=== PATIENT | female | born 1980 | race Asian ===

== ENCOUNTER 2017-01-10 11:30 | Inpatient (IN) | payer BC ==
[~2017-01-10 11:30] MED LIST: CITRIC ACID/SODIUM CITRATE 30 ML UNIT-DOSE CUP PO ONE; ELECTROLYTE-148 SOLN 1,000 ML IV SCH
[2017-01-10 12:00] VITALS: BMI 19.1
[2017-01-10] MEDS ORDERED: morphine SULFATE/Preservative Free 0.5 MG/ML (1cc Syringe) SPIN ONE (13:10)
[2017-01-10] MEDS ORDERED: ONDANSETRON 4 MG/2 ML VIAL IVPB PRN (13:14)
[2017-01-10] MEDS: OXYTOCIN 20 UNITS in 0.9% NS 1,000 ML IV SCH (13:31)
[2017-01-10] MEDS ORDERED: IBUPROFEN 600 MG TABLET (FP) PO PRN (14:01)
[2017-01-10] MEDS ORDERED: METHYLERGONOVINE MALEATE 0.2 MG/1 ML AMP IM PRN (14:01)
--- NOTE | 2017-01-10 14:09 | HP ---
Past Medical History - Primary Care Physician PCP:: Susana Weston - Admission Chief Complaint: Previous Section History of Present Illness: 36 yo G P EDc EGA 39 weeks with AMA, gestational DM previous CS for repeat CS at 39 week History Source: Patient - Past Medical History ...: 2 ...Para: 1 ...Term: 1 ...: 0 ...Spon : 0 ...Induced : 0 ...Multiple Gestation: 0 ...LMP: 04/16/16 ... Weeks Gestation by Dates: 39.3 ...EDC by Dates: 01/21/17 ...EDC by Sono: 01/17/17 Additional Medical History: gestational DM - Past Surgical History Past Surgical History: Yes: Hx Myomectomy: No Hx Transabdominal Cerclage: No - Smoking History Smoking history: Never smoked Have you smoked in the past 12 months: No - Alcohol/Substance Use Hx Alcohol Use: No History of Substance Use: reports: None - Social History Usual Living Arrangement: Yes: With Spouse History of Recent Travel: No Home Medications - Allergies Allergies/Adverse Reactions: Allergies Allergy/AdvReac Type Severity Reaction Status Date / Time sulfamethoxazole Allergy Mild Swelling Verified 11/26/16 13:48 [From Bactrim] trimethoprim [From Bactrim] Allergy Mild Swelling Verified 11/26/16 13:48 - Home Medications Home Medications: Ambulatory Orders Vit/Iron Fumarate/FA [ Tablet] 1 tab PO DAILY 09/08/13 Colace - 1 tab PO DAILY 11/26/16 Zantac 1 tab PO DAILY 11/26/16 Oxycodone HCl/Acetaminophen [Percocet 5-325 mg Tablet -] 1 tab PO Q4H #20 tablet MDD 6 01/10/17 Review of Systems - Review of Systems Constitutional: reports: No Symptoms Eyes: reports: No Symptoms HENT: reports: No Symptoms Neck: reports: No Symptoms Cardiovascular: reports: No Symptoms Respiratory: reports: No Symptoms Gastrointestinal: reports: No Symptoms Genitourinary: reports: No Symptoms Breasts: reports: No Symptoms Reported Musculoskeletal: reports: No Symptoms Integumentary: reports: No Symptoms Neurological: reports: No Symptoms Endocrine: reports: No Symptoms Hematology/Lymphatic: reports: No Symptoms Psychiatric: reports: No Symptoms Physical Exam - Maternity Constitutional: Yes: Well Nourished, No Distress HENT: Yes: WNL Neck: Yes: WNL Cardiovascular: Yes: WNL, Regular Rate and Rhythm Lungs: Clear to auscultation Breast(s): Yes: WNL - Abdominal Exam/OB Fundal Height: 40 Number of Fetuses: Single Presentation: Vertex Contractions: No Monitor Mode: External Heart Rate Location: [facility] Category: I Accelerations: Non-Uniform - Vaginal Exam/OB Speculum Exam: No Amniotic Membrane Status: Intact Presentation: Vertex/Position Station: -1 - Physical Exam Musculoskeletal: Yes: WNL Extremities: Yes: WNL Edema: No Integumentary: Yes: WNL Hemorrhage Risk Assessment - Risk Factors Medium Risk Factors: Yes: Prior , uterine surgery,or multiple laparotomies Risk Score: 1 Risk Level: Medium Risk Problem List - Problems (1) Previous delivery affecting , antepartum Code(s): O34.219 - MATERNAL CARE FOR UNSP TYPE SCAR FROM PREVIOUS DEL (2) Elderly multigravida in third trimester Code(s): O09.523 - SUPERVISION OF ELDERLY MULTIGRAVIDA, THIRD TRIMESTER (3) Gestational diabetes Code(s): O24.419 - GESTATIONAL DIABETES MELLITUS IN , UNSP CONTROL Assessment/Plan Previous CS AMA Cat 1 Gestational DM Plan Repeat CS
--- NOTE | 2017-01-10 14:14 | OP ---
Operative Note - Note: Operative Date: 01/10/17 Pre-Operative Diagnosis: Previous Section. AMA. Gestation DM Operation: Repeat Section Findings: Live male infant in OT position Post-Operative Diagnosis: Same as Pre-op Surgeon: Susana Weston Pulmonology Technician: Kulwant Mandel Anesthesia: Spinal Estimated Blood Loss (mls): 600 Operative Report Dictated: Yes
[2017-01-10 14:34] LABS: ARTERIAL BLD GAS O2 SATURATION 36.8 % (90-98.9); ARTERIAL BLOOD GAS BASE EXCESS -1.6 meq/l (-2-2); ARTERIAL BLOOD GAS HCO3 25.7 meq/L (22-26)
[2017-01-10] MEDS: IBUPROFEN 800 MG/8 ML IJ IVPB PRN ×2 (14:39→20:40)
[2017-01-10 14:42] LABS: LPM/O2% 21; PT. ON O2? ROOM AIR
[2017-01-10 14:43] LABS: ARTERIAL BLOOD GAS pH 7.28 (7.35-7.45); VENOUS PH 7.33 (7.32-7.42)
[2017-01-10 14:44] LABS: VENOUS BLOOD GAS HCO3 24.4 meq/L (19-25)
--- NOTE | 2017-01-10 15:11 | OP ---
DATE OF OPERATION: 01/10/2017 PREOPERATIVE DIAGNOSIS: Previous section and diabetes. OPERATION: Repeat section. POSTOPERATIVE DIAGNOSIS: Previous section and diabetes, and live male . SURGEON: Sadaf Wesotn MD STUDIO ENGINEER: MUNIRA Marcos. ANESTHESIA: Spinal. ANESTHESIOLOGIST: Viral Jamison MD PROCEDURE: Patient was taken to the operating room, placed in supine position, prepped and draped in the usual sterile fashion. A time-out was performed in accordance with hospital regulations. Scalpel was then used to make a Pfannenstiel skin incision through the patients previous scar. Cautery was then used to go through the layers of the abdominal wall to the level of the fascia. Fascia was cut in the midline, and cautery was then used to open the fascia in smiling fashion. Grover was then used to bluntly and sharply dissect the rectus muscle off the fascia. The muscle was split in the midline. Peritoneal cavity was entered and carried up and downwards. Bladder retractor was then placed. Vesicouterine reflection was taken down. Scalpel was then used to make a low transverse uterine incision. Incision was carried up with use of bandage scissors. A live male was delivered in OT position. Nose and mouth suction was performed. Shoulders were delivered without difficulty. The cord was clamped and cut. Live male infant was handed to juvenile corrections officer. Placenta was manually extracted from the uterus. The uterus was exteriorized and cleaned with clean lap pads. Uterine incision was then closed using 0 Biosyn suture, first layer with continuous interlocking and second layer imbricating the first layer. Hemostasis was achieved. Uterus was interiorized. Abdominal cavity cleaned with clean lap pads. Peritoneum closed using 0 Biosyn suture. Fascia was then closed using 0 Vicryl suture in 2 parts. Skin was then closed using 3-0 Vicryl in subcuticular fashion. Wounds washed and dressed. Patient tolerated the procedure well, was taken to the recovery room in stable condition. SADAF WESTON M.D. [id number] MTDD
[2017-01-10] MEDS: ELECTROLYTE-148 SOLN 1,000 ML IV SCH (15:59)
--- NOTE | 2017-01-10 18:30 | SURG ---
Surgery Cleaning Manager Note Cleaning Manager: Kulwant Mandel PA-C Date of Service: 01/10/17 Diagnosis: Previous Section. AMA. Gestation DM Procedure: Repeat Section I was present for the entirety of the operative procedure. For further detail, please refer to operative report. Visit type - Case Type Case Type: Scheduled Admission - New patient This patient is new to me today: Yes Date on this admission: 01/10/17
[2017-01-11] MEDS: IBUPROFEN 600 MG TABLET (FP) PO PRN ×2 (06:26→11:59)
[2017-01-11] MEDS: ACETAMINOPHEN 325 MG TABLET (FP) PO PRN (06:26)
--- NOTE | 2017-01-11 07:45 | PN ---
Post Progress Note - Subjective Subjective: 36 yo Para 2, status post repeat , seen and evaluated. She's lying in bed, no complaints. Post Day: 1 Type of Delivery: Repeat C/S Vital Signs: Vital Signs Temperature 97.7 F 01/11/17 06:00 Pulse Rate 86 01/11/17 06:00 Respiratory Rate 18 01/11/17 07:00 Blood Pressure 124/59 01/11/17 06:00 O2 Sat by Pulse Oximetry (%) 99 01/10/17 14:58 Breast Exam: Yes: Soft Uterus: Yes: Fundus Firm Incision: Yes: Dressing dry and intact Abdomen/GI: Yes: Abdomen soft Lochia: Yes: Rubra Lochia, amount: Small Extremities: Yes: Calves non-tender Perineum: Yes: Intact Assessment/Plan Status post repeat Ambulation Analgesia as needed Continue routine post op care
[2017-01-11 08:55] LABS: BASOPHIL 0.3 % (0-2.0); EOSINOPHIL 1.2 % (0-4.5); MCH 29.7 pg (25.7-33.7); MCHC 32.3 g/dl (32.0-36.0); MEAN PLT VOLUME 8.5 fl (7.5-11.1); NEUTROPHILS 81.6 % (42.8-82.8); PLATELET COUNT 167 K/MM3 (134-434); RDW 13.9 % (11.6-15.6); WHITE BLOOD COUNT 11.2 K/mm3 (4.0-10.0)
[2017-01-11] MEDS: PRENATAL VITAMINS W/ FOLIC ACID TABLET (FP) PO SCH (10:01)
--- NOTE | 2017-01-11 10:11 | PN ---
Progress Note (short form) - Note Progress Note: POD #1 - s/p repeat under spinal anesthesia with morphine. Pt. doing well, sitting up comfortably in chair. No complaints. Good pain control. No apparent anesthetic complications noted. Continue current care.
[2017-01-11] MEDS: oxyCODONE HCL 5 MG TABLET PO PRN ×2 (11:58→19:07)
[2017-01-11] MEDS: SIMETHICONE 80 MG TAB.CHEW (FP) PO PRN ×2 (12:00→19:07)
[2017-01-11] MEDS ORDERED: BISACODYL 10 MG SUPP.RECT RC PRN (14:01)
[2017-01-12] MEDS: SIMETHICONE 80 MG TAB.CHEW (FP) PO PRN ×4 (03:12→22:00)
[2017-01-12] MEDS: IBUPROFEN 600 MG TABLET (FP) PO PRN ×4 (03:12→22:00)
--- NOTE | 2017-01-12 06:21 | PN ---
Post Progress Note - Subjective Subjective: 36 yo status post repeat , seen and evaluated. Doing well. No complaints. Post Day: 2 Type of Delivery: Repeat C/S Vital Signs: Vital Signs Temperature 98.4 F 01/11/17 20:41 Pulse Rate 92 H 01/11/17 20:41 Respiratory Rate 18 01/11/17 20:41 Blood Pressure 105/64 01/11/17 20:41 O2 Sat by Pulse Oximetry (%) 99 01/10/17 14:58 Breast Exam: Yes: Soft Uterus: Yes: Fundus Firm Incision: Yes: Other (Sterile strips in place) Abdomen/GI: Yes: Tolerating PO Lochia: Yes: Rubra Lochia, amount: Small Extremities: Yes: Calves non-tender Perineum: Yes: Intact Activity: Ambulating - Labs Labs: CBC WBC 11.2 K/mm3 (4.0-10.0) H D 01/11/17 08:30 RBC 4.38 M/mm3 (3.60-5.2) 01/11/17 08:30 Hgb 13.0 GM/dL (10.7-15.3) 01/11/17 08:30 Hct 40.3 % (32.4-45.2) 01/11/17 08:30 MCV 92.0 fl (80-96) 01/11/17 08:30 MCH 29.7 pg (25.7-33.7) 01/11/17 08:30 MCHC 32.3 g/dl (32.0-36.0) 01/11/17 08:30 RDW 13.9 % (11.6-15.6) 01/11/17 08:30 Plt Count 167 K/MM3 (134-434) 01/11/17 08:30 MPV 8.5 fl (7.5-11.1) 01/11/17 08:30 Neutrophils % 81.6 % (42.8-82.8) 01/11/17 08:30 Lymphocytes % 10.5 % (8-40) D 01/11/17 08:30 Monocytes % 6.4 % (3.8-10.2) 01/11/17 08:30 Eosinophils % 1.2 % (0-4.5) 01/11/17 08:30 Basophils % 0.3 % (0-2.0) 01/11/17 08:30 Assessment/Plan Status post repeat Ambulation Analgesia as needed Continue routine post op care
[2017-01-12] MEDS: oxyCODONE HCL 5 MG TABLET PO PRN ×2 (09:22→17:47)
[2017-01-12] MEDS: PRENATAL VITAMINS W/ FOLIC ACID TABLET (FP) PO SCH (09:22)
[2017-01-12] MEDS ORDERED: DIPHTH,PERTUSS(ACELL),TET 0.5 ML DISP.SYRIN IM ONE (10:00)
[2017-01-12] MEDS: ELECTROLYTE-148 SOLN 1,000 ML IV SCH ×2 (19:30→19:31)
[2017-01-12] MEDS: OXYTOCIN 20 UNITS in 0.9% NS 1,000 ML IV SCH (19:31)
[2017-01-13] MEDS: oxyCODONE HCL 5 MG TABLET PO PRN ×2 (06:23→12:13)
[2017-01-13] MEDS: SIMETHICONE 80 MG TAB.CHEW (FP) PO PRN ×2 (06:23→12:13)
[2017-01-13] MEDS: ACETAMINOPHEN 325 MG TABLET (FP) PO PRN (06:23)
[2017-01-13 07:36] VITALS: BP 121/71; PULSE 79; TEMP 98
[2017-01-13 07:55] LABS: MCH 30.1 pg (25.7-33.7); MCHC 32.9 g/dl (32.0-36.0); MEAN CELL VOLUME 91.6 fl (80-96); MEAN PLT VOLUME 7.8 fl (7.5-11.1); NEUTROPHILS 74.9 % (42.8-82.8); PLATELET COUNT 217 K/MM3 (134-434); RDW 13.5 % (11.6-15.6); WHITE BLOOD COUNT 7.9 K/mm3 (4.0-10.0)
[2017-01-13] MEDS: PRENATAL VITAMINS W/ FOLIC ACID TABLET (FP) PO SCH (09:08)
--- NOTE | 2017-01-13 09:32 | DS ---
Physical Exam-PATTERN CHANGER AND REPAIRER Vital Signs: Vital Signs Temperature 98 F 01/13/17 07:35 Pulse Rate 79 01/13/17 07:35 Respiratory Rate 18 01/13/17 07:35 Blood Pressure 121/71 01/13/17 07:35 O2 Sat by Pulse Oximetry (%) 99 01/10/17 14:58 Constitutional: Yes: Well Nourished Eyes: Yes: Conjunctiva Clear HENT: Yes: Atraumatic Neck: Yes: Supple Cardiovascular: Yes: Regular Rate and Rhythm Respiratory: Yes: Regular Gastrointestinal: Yes: Normal Bowel Sounds External Genitalia: Yes: Normal Uterus: Yes: Normal Wound/Incision: Yes: Sutures Intact Neurological: Yes: Alert, Oriented ...Motor Strength: WNL Psychiatric: Yes: Alert, Oriented Labs: CBC, BMP 01/13/17 07:15 Delivery - Delivery Type of Anesthesia: Spinal Episiotomy/Laceration: None EBL (cc): 500 Delivery, Single - Stages of Labor Date of Delivery: 01/10/17 Time of Delivery: 13:30 Time Placenta Delivered: 13:31 - Condition of Supervisor Vegetable Farming/Apprentice Funeral Director Present: Yes Name: Danny Menjivar Infant Gender: Male Weight: 9 lb 2 oz Position: OT Total Hours ROM (Hrs/Mins): 0/1 - 1 Minute Total Score: 9 5 Minutes Total Score: 9 - [place] Feeding Plan Initial Plan: Elected not to breastfeed exclusively throughout hospitalization Discharge Summary Reason For Visit: C SECTION Current Active Problems Elderly multigravida in third trimester (Acute) Gestational diabetes (Acute) Previous delivery affecting , antepartum (Acute) Procedures: Principal: Repeat Low Transverse Hospital Course: Routine Post op care - Instructions Diet, Activity, Other Instructions: Return to MD office in 1-2weeks, call office for an appointment. Referrals: Susana Weston MD [Staff Physician] - - Home Medications Comprehensive Discharge Medication List: Ambulatory Orders Vit/Iron Fumarate/FA [ Tablet] 1 tab PO DAILY 09/08/13 Colace - 1 tab PO DAILY 11/26/16 Zantac 1 tab PO DAILY 11/26/16 Oxycodone HCl/Acetaminophen [Percocet 5-325 mg Tablet -] 1 tab PO Q4H #20 tablet MDD 6 01/10/17
[2017-01-13] MEDS: IBUPROFEN 600 MG TABLET (FP) PO PRN (12:14)
--- NOTE | 2017-01-15 15:59 | PATH ---
Surgical Pathology Report Patient Name: AP FERMIN Med. Rec. #: [id number] /Age/Gender: 1980 (Age: 36) / F Account: [id number] Location: [facility] OBS/BUSINESS EMPLOYMENT SPECIALIST Taken: 01/10/2017 Received: 01/13/2017 Reported: 01/15/2017 Physicians: Susana Weston M.D. Specimen(s) Received PLACENTA Clinical History , x1 Final Diagnosis PLACENTA, SECTION: MATURE THIRD TRIMESTER PLACENTA, TRIVASCULAR UMBILICAL CORD AND UNREMARKABLE MEMBRANES. Electronically Signed Stephanie Moctezuma M.D. Gross Description The specimen is received fresh labeled placenta and is a 628 gram, 22.0 x 19.0 x 2.2 cm. placenta with attached membranes and umbilical cord. The attached membranes are solorzano, translucent with focal opacities and insert marginally. The umbilical cord measures 11 cm in length and averages 1.3 cm in diameter. The cord inserts eccentrically, 2 cm to the nearest margin. No true knots or strictures are identified. Cut surface of the umbilical cord reveals 3 vessels. The surface is underwood-blue with minimal fibrin deposition and appropriate caliber vessels. The maternal surface is red-brown with focal defects. Sectioning reveals red-brown, spongy parenchyma. No lesions are identified. Steel Construction Worker sections are submitted in three cassettes as follows: 1- membrane rolls and umbilical cord; 2-3- full thickness sections of placenta. /01/14/201701/14/2017
== END 2017-01-13 15:50 | disposition home or self-care (01) | DRG 766 ==
LOC: JLDR 11:30 → J3W 15:43
PROVIDERS: ADMIT Obstetrics & Gynecology; ATTEND Obstetrics & Gynecology
PROC: 10D00Z1 Extraction of Products of Conception, Low, Open Approach (ICD-10-PCS; principal; 2017-01-10)
DX: O34.211 Maternal care for low transverse scar from previous cesarean delivery (principal); O24.429 Gestational diabetes mellitus in childbirth, unspecified control; Z3A.39 39 weeks gestation of pregnancy; Z37.0 Single live birth
CPT/HCPCS: 36415; 36600; 82803; 85025; 88307-TC; 90715

== ENCOUNTER 2023-02-17 05:04 | Day surgery (SDC) | payer OTHER ==
[2023-02-13 19:45] VITALS: BMI 20.7
[2023-02-17] MEDS ORDERED: FENTANYL CITRATE/PF 50 MCG/ML VIAL ONE ×4 (07:40→09:15)
[2023-02-17] MEDS ORDERED: SUCCINYLCHOLINE CHLORIDE 200 MG/10 ML SYRINGE ONE (07:41)
[2023-02-17] MEDS ORDERED: PROPOFOL 40 ML ONE (07:41)
[2023-02-17] MEDS ORDERED: DEXAMETHASONE SOD PHOSPHATE 4 MG/1 ML VIAL ONE (08:27)
[2023-02-17] MEDS ORDERED: KETOROLAC TROMETHAMINE 30 MG/1 ML VIAL ONE (08:27)
[2023-02-17] MEDS ORDERED: ONDANSETRON 4 MG/2 ML VIAL ONE (08:27)
[2023-02-17] MEDS ORDERED: ONDANSETRON 4 MG/2 ML VIAL IVPUSH PRN (08:46)
[2023-02-17] MEDS ORDERED: oxyCODONE HCL 5 MG TABLET PO PRN (08:46)
[2023-02-17] MEDS ORDERED: ACETAMINOPHEN 325 MG TABLET (FP) PO PRN (08:59)
[2023-02-17] MEDS ORDERED: IBUPROFEN 400 MG TABLET (FP) PO PRN (08:59)
[2023-02-17] MEDS ORDERED: LACTATED RINGERS SOLUTION 1,000 ML IV SCH (09:00)
[2023-02-17 09:30] VITALS: RESP 18
[2023-02-17] MEDS ORDERED: IBUPROFEN 400 MG TABLET (FP) PO ONE (10:25)
[2023-02-17] MEDS ORDERED: oxyCODONE HCL 5 MG TABLET ONE (11:19)
[2023-02-17 12:14] VITALS: TEMP 97
[2023-02-17 12:38] VITALS: BP 120/70; PULSE 76
== END 2023-02-17 12:39 | disposition home or self-care (01) ==
LOC: JASU-SURG 05:04
PROVIDERS: ATTEND Obstetrics & Gynecology
PROC: 0UB98ZZ Excision of Uterus, Via Natural or Artificial Opening Endoscopic (ICD-10-PCS; principal; 2023-02-17 07:30)
DX: N92.0 Excessive and frequent menstruation with regular cycle (principal); N84.0 Polyp of corpus uteri
CPT/HCPCS: 81025; 88305-TC; 94760

== ENCOUNTER 2023-11-24 04:36 | Day surgery (SDC) | payer OTHER ==
[2023-11-19 13:38] VITALS: BMI 19.2
[2023-11-24] MEDS ORDERED: ACETAMINOPHEN 325 MG TABLET (FP) PO PRN (07:37)
[2023-11-24] MEDS ORDERED: ONDANSETRON 4 MG/2 ML VIAL IVPUSH PRN (07:37)
[2023-11-24] MEDS ORDERED: oxyCODONE HCL 5 MG TABLET PO PRN (07:37)
[2023-11-24] MEDS ORDERED: LACTATED RINGERS SOLUTION 1,000 ML IV SCH (07:45)
[2023-11-24] MEDS ORDERED: PROPOFOL 20 ML ONE (10:30)
[2023-11-24] MEDS ORDERED: MIDAZOLAM HCL 2 MG/2 ML SINGLE DOSE VIAL ONE (10:30)
[2023-11-24] MEDS ORDERED: KETOROLAC TROMETHAMINE 30 MG/1 ML VIAL ONE (10:59)
[2023-11-24] MEDS ORDERED: DEXAMETHASONE SOD PHOSPHATE 4 MG/1 ML VIAL ONE (10:59)
[2023-11-24] MEDS ORDERED: ONDANSETRON 4 MG/2 ML VIAL ONE (10:59)
[2023-11-24 14:26] VITALS: RESP 18
[2023-11-24 14:29] VITALS: BP 112/69; PULSE 89; TEMP 97.8
== END 2023-11-24 13:35 | disposition home or self-care (01) ==
LOC: JASU-SURG 04:36
PROVIDERS: ATTEND Obstetrics & Gynecology
PROC: 0UBC8ZZ Excision of Cervix, Via Natural or Artificial Opening Endoscopic (ICD-10-PCS; principal; 2023-11-24 09:30)
PROC: 0UB98ZZ Excision of Uterus, Via Natural or Artificial Opening Endoscopic (ICD-10-PCS; 2023-11-24 09:30)
DX: D25.0 Submucous leiomyoma of uterus (principal); N84.1 Polyp of cervix uteri; N85.6 Intrauterine synechiae
CPT/HCPCS: 81025; 88305-TC; 94760